=== PATIENT | male | born 1955 | race Caucasian/White ===

== ENCOUNTER 2025-09-25 03:13 | Emergency (ER) | payer MEDICARE ==
[2025-09-25] MEDS ORDERED: Acetaminophen/Codeine 30-300mg Tablet ONE (04:02)
[2025-09-25] MEDS ORDERED: Cyclobenzaprine 10 MG TAB ONE (04:02)
[2025-09-25 04:20] LABS: #Basophils 0.1 thou/uL (0.0-0.2); #Eosinophils 0.1 thou/uL (0.0-0.7); #Lymphocytes 1.6 thou/uL (1.20-3.40); #Monocytes 1.0 thou/uL (0.11-0.59); #Neutrophils 9.0 thou/uL (1.40-6.50); %Basophils 0.9 % (0.0-1.0); %Eosinophils 0.5 % (0.0-10.0); %Lymphocytes 13.9 % (21.0-51.0); %Monocytes 8.2 % (0.0-10.0); %Neutrophils 76.4 % (42.0-75.0); Hematocrit 50.5 % (42.0-52.0); Hemoglobin 17.4 g/dL (14.0-18.0); Mean Corpuscular Hemoglobin 29.0 pg (27.0-31.0); Mean Corpuscular Volume 84.4 fl (78.0-98.0); Platelet Count 375 10x3/uL (130-400); Red Blood Cell (RBC) Count 5.98 mill/uL (4.70-6.10); White Blood Cell (WBC) Count 11.7 10x3/uL (4.8-10.8)
[2025-09-25] MEDS ORDERED: Gabapentin 100 MG CAP ONE (05:04)
== END 2025-09-25 06:36 | disposition short-term general hospital (02) ==
LOC: NAV ERS 03:13
DX: M79.652 Pain in left thigh (principal); R79.1 Abnormal coagulation profile; M54.16 Radiculopathy, lumbar region; E78.5 Hyperlipidemia, unspecified; I10 Essential (primary) hypertension; Z79.899 Other long term (current) drug therapy; X50.9XXA Other and unspecified overexertion or strenuous movements or postures, initial encounter
CPT/HCPCS: 72131; 85025; 85379; J1885; 36415; 96372